=== PATIENT | female | born 1960 | race Caucasian/White ===

== ENCOUNTER 2017-12-23 01:39 | Emergency (ER) | payer MEDICARE, OTHER ==
[~2017-12-23] VITALS: Ht 160 cm; Wt 111.4 kg
[2017-12-23] MEDS ORDERED: FURO40I IM (01:56)
[2017-12-23] MEDS ORDERED: DIVA125T PO (01:56)
[2017-12-23] MEDS ORDERED: INSU200I4 SQ (01:56)
[2017-12-23] MEDS ORDERED: VITAD1000 PO (01:56)
[2017-12-23] MEDS ORDERED: VENL50TA44 PO (01:56)
[2017-12-23] MEDS ORDERED: OXYB5 PO (01:56)
[2017-12-23] MEDS ORDERED: LIRA3PEN IM (01:56)
[2017-12-23] MEDS ORDERED: NALO12.5 PO (01:56)
[2017-12-23] MEDS ORDERED: ATOR10TA84 PO (01:56)
[2017-12-23] MEDS ORDERED: LISI-662 PO (01:56)
[2017-12-23] MEDS ORDERED: DOXE10 PO (01:56)
[2017-12-23] MEDS ORDERED: INSU100I3 SQ (01:56)
[2017-12-23] MEDS ORDERED: MORPHINE SULFATE 4 MG/ML SYRINGE IVP ONE (02:30)
[2017-12-23] MEDS ORDERED: ONDANSETRON HCL 4 MG/2 ML VIAL IVP ONE (02:30)
[2017-12-23] MEDS ORDERED: BARIUM SULFATE 0.1% SUSPENSION 450 ML BOTTLE PO ONE (02:30)
[2017-12-23] MEDS ORDERED: SODIUM CHLORIDE 0.9% 1,000 ML IV ONE (02:30)
[2017-12-23 02:52] LABS: CALCIUM, TOTAL 9.2 mg/dL (8.8-10.5); CREATININE 1.72 mg/dL (0.60-1.30); POTASSIUM 3.4 mmol/L (3.5-5.1)
[2017-12-23 02:56] LABS: BASOPHILS % (AUTO) 0.7 % (0.0-2.0); EOSINOPHILS % (AUTO) 1.4 % (1.0-6.0); HEMATOCRIT 39.6 % (36-46); HEMOGLOBIN 13.8 g/dL (12.0-16.0); LYMPHOCYTES # (AUTO) 1.8 K/uL (1.0-4.8); LYMPHOCYTES % (AUTO) 28.3 % (22.0-44.0); MEAN CORPUSCULAR HEMOGLOBIN 29.7 pg (26.0-34.0); MEAN CORPUSCULAR HGB CONC 34.9 G/dL (31.0-37.0); MEAN CORPUSCULAR VOLUME 85 fL (80-100); MONOCYTES # (AUTO) 0.5 K/uL (0.1-1.0); MONOCYTES % (AUTO) 7.6 % (2.0-9.0); PLATELET COUNT (AUTO) 126 K/uL (150-450); RED BLOOD CELL COUNT(AUTO) 4.67 MIL/uL (4.00-5.20); RED CELL DISTRIBUTION WIDTH 13.3 % (11.5-14.5)
[2017-12-23 02:57] LABS: APPEARANCE,URINE CLOUDY (CLEAR); BILIRUBIN,URINE NEGATIVE (NEGATIVE); GLUCOSE, URINE (UA) NEGATIVE (NEGATIVE); KETONES,URINE NEGATIVE (NEGATIVE); LEUKOCYTE ESTERASE ,URINE MODERATE (NEGATIVE); NITRATE,URINE POSITIVE (NEGATIVE); OCCULT BLOOD,URINE TRACE (NEGATIVE); PROTEIN,URINE SEE CONFIRM (NEGATIVE)
[2017-12-23 02:59] LABS: PROTHROMBIN TIME 10.6 SEC (9.4-11.6)
[2017-12-23 03:01] LABS: ALBUMIN 3.2 g/dL (3.4-5.0); BILIRUBIN,TOTAL 0.3 mg/dL (0.1-1.0); TOTAL PROTEIN, SERUM 6.7 g/dL (6.4-8.2)
[2017-12-23 03:07] LABS: BACTERIA,URINE Moderate /HPF (None Seen); SQUAMOUS EPITHELIAL CELL,UR Few /LPF (None Seen); SULFOSALICYLIC ACID,URINE 3+ (Negative)
[2017-12-23] MEDS ORDERED: CefTRIAXone SODIUM 1 GM in DEXTROSE 5%-WATER 10 ML IV ONE (03:45)
[2017-12-23 03:53] LABS: GLUCOSE,POINT OF CARE 149 MG/DL (70-110)
[2017-12-23 04:14] VITALS: BP 147/89
== END 2017-12-23 04:27 | disposition home or self-care (01) ==
LOC: EMS 01:41
DX: N39.0 Urinary tract infection, site not specified (principal); E11.9 Type 2 diabetes mellitus without complications; Z79.4 Long term (current) use of insulin
CPT/HCPCS: 36415; 74176; 80053; 81001; 82150; 82962; 83690; 84484; 84703; 85025; 85610; 87086; 96361; 96365; 96375; 99285; J0696; J2270; J2405; J7030; J7060